=== PATIENT | male | born 1935 | race Asian ===

== ENCOUNTER 2017-06-17 16:39 | Inpatient (IN) | payer OTHER, MEDICAID ==
[~2017-06-17] VITALS: Ht 167.6 cm; Wt 45.1 kg
[~2017-06-17 16:39] MED LIST: ALENDRONATE SOD70 M2 PO; AMIODARONE HCL200 MG PO; AMLODIPINE BES2.5 M1; ATORVASTATIN CA10 M1 GT; COLACE100 MG PO; COZAAR50 M1; COZAAR50 MG; ESCITALOPRAM10 M1 PO; FLO4 PO; FOSAMAX70 MG PO; K-TAB10 MEQ PO; KEPPRA500 MG PO; LEVAQUIN750 MG PO; LEVETIRACETAM250 M1; LEVOTHYROXIN0.025 M2; LEVOTHYROXINE0.05 M1 PO; LEXAPRO10 MG PO; LEXAPRO5 M1; LOPRESSOR50 MG PO; NORVASC2.5 MG PO; PARLODEL2.5 MG PO; POTASSIUM CHLO10 ME2 PO; PRADAXA150 M1; PRADAXA150 M1 PO; PRADAXA75 M1 PO; PROS5 PO; PROSCAR5 MG PO; ROC1I IV; SUPRAX200 MG/5 M; SYNTHROID0.125 MG PO; TAMSULOSIN HYD0.4 M1 PO
[2017-06-17 17:47] LABS: BASOPHIL % 0.9 % (0-2); PLATELET COUNT 328 x10^3mcL (130-400)
[2017-06-17 17:48] LABS: UA SPECIFIC GRAVITY <=1.005 (1.005-1.035); microscopic required? YES; urine erythrocyte 2+ (NEGATIVE)
[2017-06-17 17:49] LABS: RED CELL DISTRIBUTION WIDTH 21.8 % (11.5-14.5)
[2017-06-17 17:55] LABS: CALCIUM 9.3 mg/dL (8.5-10.1); CARBON DIOXIDE 27.3 mmol/L (21-32); CHLORIDE SERUM 95 mmol/L (98-107); CREATININE SERUM 0.9 mg/dL (0.7-1.3); GLUCOSE SERUM 109 mg/dL (74-106); POTASSIUM SERUM 3.8 mmol/L (3.5-5.1); SODIUM SERUM 134 mmol/L (136-145)
[2017-06-17 17:59] LABS: ALKALINE PHOSPHATASE 336 U/L (46-116); ALT/SGPT 26 U/L (16-63); AST/SGOT 36 U/L (15-37); BILIRUBIN TOTAL 1.6 mg/dL (0.20-1.00)
[2017-06-17 18:02] LABS: ALBUMIN 3.2 g/dL (3.4-5.0); TOTAL PROTEIN, SERUM 8.6 g/dL (6.4-8.2)
[2017-06-17 18:33] LABS: rbc morphology (normal/abnorm) ABNORMAL (NORMAL)
[2017-06-17 19:54] LABS: T3 TOTAL 0.76 ng/mL
[2017-06-17 20:06] VITALS: BP 157/95
[2017-06-17 20:21] LABS: CHOLESTEROL/HDL RATIO 7.3; MAGNESIUM 2.2 mg/dL (1.8-2.4)
[2017-06-17 20:28] LABS: FREE T4 1.24 ng/dL (0.76-1.46); FREE THYROXINE INDEX 2.3 ug/dL (1.4-4.5); T4(THYROXINE) 6.9 ug/dL (4.7-13.3)
[2017-06-17 21:19] VITALS: BP 100/53
[2017-06-17] MEDS ORDERED: CAL-CITRATE PL1 EACH (22:31)
[2017-06-17] MEDS ORDERED: METP (22:33)
[2017-06-17] MEDS ORDERED: ELIQUIS2.5 MG PO (22:33)
[2017-06-17] MEDS ORDERED: MEGL PO (22:35)
[2017-06-17] MEDS ORDERED: MEGACE400 MG/10 PO (22:35)
[2017-06-18 00:30] VITALS: BP 116/62
[2017-06-18 04:53] VITALS: BP 101/69
[2017-06-18 06:09] LABS: CALCIUM 8.4 mg/dL (8.5-10.1); CHLORIDE SERUM 105 mmol/L (98-107); CREATININE SERUM 0.8 mg/dL (0.7-1.3); GLUCOSE SERUM 82 mg/dL (74-106); POTASSIUM SERUM 4.2 mmol/L (3.5-5.1); SODIUM SERUM 137 mmol/L (136-145)
[2017-06-18 08:42] VITALS: Ht 167.6 cm; Wt 45.1 kg
[2017-06-18 09:41] VITALS: BP 129/75
[2017-06-18 09:47] LABS: BASOPHIL % 0.6 % (0-2); PLATELET COUNT 306 x10^3mcL (130-400)
[2017-06-18 09:50] LABS: RED CELL DISTRIBUTION WIDTH 21.6 % (11.5-14.5)
[2017-06-18 09:53] LABS: rbc morphology (normal/abnorm) ABNORMAL (NORMAL)
[2017-06-18 12:52] VITALS: BP 134/56
[2017-06-18 17:08] VITALS: BP 134/59
[2017-06-18 21:46] VITALS: BP 153/55
[2017-06-19 05:47] VITALS: BP 164/83
[2017-06-19 06:17] LABS: BASOPHIL % 0.3 % (0-2); PLATELET COUNT 271 x10^3mcL (130-400)
[2017-06-19 06:40] LABS: CARBON DIOXIDE 21.6 mmol/L (21-32); CHLORIDE SERUM 104 mmol/L (98-107); CREATININE SERUM 0.9 mg/dL (0.7-1.3); GLUCOSE SERUM 97 mg/dL (74-106); MAGNESIUM 1.7 mg/dL (1.8-2.4); PHOSPHOROUS 2.1 mg/dL (2.5-4.9); POTASSIUM SERUM 3.5 mmol/L (3.5-5.1); SODIUM SERUM 138 mmol/L (136-145)
[2017-06-19 06:57] LABS: RED CELL DISTRIBUTION WIDTH 20.7 % (11.5-14.5)
[2017-06-19 08:55] VITALS: BP 159/79
[2017-06-19 09:50] VITALS: BP 127/70
[2017-06-19 15:57] VITALS: BP 144/79
[2017-06-19 21:38] VITALS: BP 152/63
[2017-06-20 06:15] VITALS: BP 154/73
[2017-06-20 07:11] LABS: BASOPHIL % 0.5 % (0-2); PLATELET COUNT 278 x10^3mcL (130-400); RED CELL DISTRIBUTION WIDTH 21.6 % (11.5-14.5)
[2017-06-20 07:35] LABS: CALCIUM 8.7 mg/dL (8.5-10.1); CARBON DIOXIDE 23.5 mmol/L (21-32); CHLORIDE SERUM 102 mmol/L (98-107); CREATININE SERUM 0.8 mg/dL (0.7-1.3); GLUCOSE SERUM 79 mg/dL (74-106); MAGNESIUM 1.9 mg/dL (1.8-2.4); PHOSPHOROUS 1.7 mg/dL (2.5-4.9); POTASSIUM SERUM 3.9 mmol/L (3.5-5.1); SODIUM SERUM 137 mmol/L (136-145)
[2017-06-20 10:41] VITALS: BP 143/55
[2017-06-20] MEDS ORDERED: LEVAQUIN750 MG PO (11:28)
[2017-06-20] MEDS ORDERED: CLEOCIN HCL300 MG PO (11:28)
[2017-06-20] MEDS ORDERED: LAC PO (11:29)
[2017-06-20 13:04] VITALS: BP 143/55
[2017-06-20 14:33] VITALS: BP 145/83
== END 2017-06-20 16:00 | DRG 193 ==
LOC: ED 16:39 → DU 18:53 → MU 06-19 09:48
PROVIDERS: Emergency Medicine; Family Medicine
DX: J18.9 Pneumonia, unspecified organism (principal); G93.41 Metabolic encephalopathy; E87.2 Acidosis; E87.1 Hypo-osmolality and hyponatremia; E44.0 Moderate protein-calorie malnutrition; G20 Parkinson's disease; F02.80 Dementia in other diseases classified elsewhere, unspecified severity, without behavioral disturbance, psychotic disturbance, mood disturbance, and anxiety; K76.0 Fatty (change of) liver, not elsewhere classified; N40.0 Benign prostatic hyperplasia without lower urinary tract symptoms; I48.91 Unspecified atrial fibrillation; I25.10 Atherosclerotic heart disease of native coronary artery without angina pectoris; G40.909 Epilepsy, unspecified, not intractable, without status epilepticus; E78.2 Mixed hyperlipidemia; E03.9 Hypothyroidism, unspecified; Z68.22 Body mass index [BMI] 22.0-22.9, adult; Z86.73 Personal history of transient ischemic attack (TIA), and cerebral infarction without residual deficits; Z74.01 Bed confinement status; Z79.01 Long term (current) use of anticoagulants
CPT/HCPCS: 83880; 84439; J1644; J1956; J2060; J3490; J7030; Q0092